=== PATIENT | male | born 1980 | race African-American/Black ===

== ENCOUNTER 2017-11-23 23:53 | Emergency (ER) | payer OTHER ==
[2017-11-24] MEDS: LIDOCAINE 2% 20 ML VIAL. IJ (00:15)
== END 2017-11-24 02:00 | disposition home or self-care (01) ==
LOC: ER 23:53
DX: S61.411A Laceration without foreign body of right hand, initial encounter (principal); S61.212A Laceration without foreign body of right middle finger without damage to nail, initial encounter; I10 Essential (primary) hypertension; E11.9 Type 2 diabetes mellitus without complications; Z88.5 Allergy status to narcotic agent; W25.XXXA Contact with sharp glass, initial encounter; Y93.01 Activity, walking, marching and hiking; Y99.8 Other external cause status; Y92.89 Other specified places as the place of occurrence of the external cause
CPT/HCPCS: 12001; 73130; 99284